=== PATIENT | female | born 1955 | race Caucasian/White ===

== ENCOUNTER 2021-09-05 10:16 | Observation (INO) | payer OTHER, SELFPAY ==
[2021-09-05] VITALS (10 sets, daily range): BP systolic 124–168; BP diastolic 68–92; PULSE 61–83; RESP 14–20; TEMP 36.7–37.2; O2SAT 93–98; BMI 23.5; BMI 20.3
--- NOTE | 2021-09-05 11:13 | EKG12_ITS ---
Test Reason : SEIZURE Blood Pressure : / mmHG Vent. Rate : 076 BPM Atrial Rate : 076 BPM P-R Int : 120 ms QRS Dur : 088 ms QT Int : 418 ms P-R-T Axes : 054 081 078 degrees QTc Int : 470 ms Sinus rhythm with Premature atrial complexes Otherwise normal ECG Confirmed by TALA PRUITT, KAROLINE ([id number]), index editor MANUEL BOLES ([id number]) on 09/10/2021 9:53:34 AM Referred By: Jamie LIU Confirmed By:KAROLINE EDGAR MD
--- NOTE | 2021-09-05 11:13 | RAD_ITS ---
STUDY: X-RAY CHEST REASON FOR EXAM: Female, 65 years old. Cough TECHNIQUE: Single AP portable view of the chest. COMPARISON: 08/07/2012. FINDINGS: The lungs are clear and expanded. There is no demonstrated pleural abnormality. Normal size heart. Normal mediastinum and kelli. Normal visualized pulmonary arteries. There is atherosclerotic tortuosity of the aortic arch and descending thoracic aorta. Normal visualized thoracic spine. Normal visualized ribs, clavicles, and shoulders. There is no demonstrated abnormality of the visualized soft tissue structures of the upper abdomen. RAD/Chest 1 View (Portable) IMPRESSION: No active pulmonary disease. Electronically Signed: Rom Azar, at 12:21 EST Tel , Service support ,
--- NOTE | 2021-09-05 11:13 | CT_ITS ---
STUDY: CT BRAIN WITHOUT CONTRAST REASON FOR EXAM: Female, 65 years old. Syncope. RADIATION DOSAGE (If Supplied By Facility): CTDIvol = ( 44.99 ) mGy, DLP = ( 745.49 ) mGycm TECHNIQUE: Transaxial CT imaging of the brain was performed without administration of intravenous contrast material. Individualized dose optimization techniques were used for this CT. COMPARISON: No relevant priors. FINDINGS: Normal soft tissue structures. Normal calvarium. Normal size ventricles and extra-axial spaces for the patient''s age. There are areas of decreased attenuation within the white matter tracts of the supratentorial brain, consistent with microvascular disease changes. Possible small old lacunar infarct in the periventricular regions. Normal brainstem. Normal cerebellum. There is no intracranial hemorrhage. There are no findings of an acute ischemic infarction. Normal visualized paranasal sinuses. CT/Brain/Head without Contrast IMPRESSION: No acute intracranial process. Electronically Signed: Rom Azar, at 12:19 EST Tel , Service support ,
--- NOTE | 2021-09-05 11:14 | EX.ED.VIS.UR ---
HPI HPI - URI History of Present Illness Chief Complaint: Seizure Narrative Narrative: 65-year-old female presenting with symptoms of cough, chills, generalized fatigue. She states this started at the end of July and then she recovered. After that she started to have a cough and feeling rundown again. She tested negative for Covid in July. She was going to urgent care to be tested for Covid and had seen the physician she was going to be prescribed Keflex for her cough due to her multiple allergies and started to feel lightheaded and the next thing she knows she woke up on a cough. It was reported to her that she had a seizure. She has no history of seizure. She has a mild headache currently. Describes no visual complaints, nausea, lightheadedness. She is not having chest pain or shortness of breath. ROS ROS ED Constitutional Constitutional ED: Reports chills and subjective Eyes Eyes: Denies blurry vision or diplopia ENT ENT ED: Denies rhinorrhea or sore throat Cardiovascular Cardiovascular: Denies chest pain or palpitations Respiratory/Chest Respiratory/Chest: Reports cough and dyspnea Gastrointestinal Gastrointestinal: Denies abdominal pain, nausea or vomiting Genitourinary Genitourinary ED: Denies dysuria or hematuria Musculoskeletal Musculoskeletal: Reports myalgias; Denies arthralgias or neck pain Integumentary Denies Abrasions or rash Neurologic Neurologic: Reports headache(s); Denies paresthesias or weakness PFSH [facility], [facility] Medical History HTN (hypertension) Hypothyroid Home Medications Valacyclovir Hcl [Valtrex] 2,000 mg PO BID PRN PRN 11/27/13 [History Last Taken Unknown] albuterol sulfate [Ventolin HFA] 2 puff INHALATION Q4H PRN PRN 11/27/13 [History Last Taken Unknown] atenolol 50 mg PO DAILY 11/27/13 [History Last Taken 07/30/15 50] epinephrine 0.3 mg IM X1 11/27/13 [History Last Taken Unknown] ginkgo biloba 120 mg PO DAILY 11/27/13 [History Last Taken 07/30/15] levothyroxine 112 mcg PO DAILY 11/27/13 [History Last Taken 07/30/15 112 mcg] multivitamin with iron 1 ea PO DAILY 11/27/13 [History Last Taken 07/17/15] lisinopril 10 mg PO DAILY #30 tablet 08/02/15 [Rx Last Taken Unknown] Allergy/AdvReac Type Severity Reaction Status Date / Time egg Allergy Hives Verified 09/05/21 10:23 ertapenem Allergy Hives Verified 09/05/21 10:23 hydrocodone bitartrate Allergy Unknown Verified 09/05/21 10:23 [From Vicodin] levofloxacin [From Levaquin] Allergy Hives Verified 09/05/21 10:23 oxycodone Allergy Itching Verified 09/05/21 10:23 Penicillins Allergy Unknown Verified 09/05/21 10:23 Sulfa (Sulfonamide Allergy Hives Verified 09/05/21 10:23 Antibiotics) sulfamethoxazole Allergy Hives Verified 09/05/21 10:23 [From Bactrim] trimethoprim [From Bactrim] Allergy Hives Verified 09/05/21 10:23 venom-honey bee Allergy Swelling Verified 09/05/21 10:23 [bee venom (honey bee)] Social History Smoking Status: Former smoker EXAM Physical Exam Const Vital Signs: 09/05/21 10:17 09/05/21 12:29 Temperature 98.5 F Temperature Source Oral Pulse Rate 61 75 Respiratory Rate 18 20 H Blood Pressure 137/78 H 168/81 H Blood Pressure Mean 97 110 Pulse Ox 98 93 Oxygen Delivery Method Room Air Room Air Positive well nourished General Appearance ED: NAD; Negative for pallor HEENT Reports moist mucous membranes normocephalic and atraumatic Eyes PERRL and EOMs intact bilaterally Neck no lymphadenopathy, supple and no meningeal signs Resp normal respiratory effort and clear to auscultation bilaterally Cardio Rate: regular rate Rhythm: regular rhythm GI non-tender and non-distended Palpation: soft Extremity normal to inspection; Negative for full ROM General Extremety ED: Negative for cyanosis General Extremity: Negative for cyanosis Neuro oriented x3 and CN's II-XII intact bilaterally Sensorium / Orientation: alert Motor Exam: strength 5/5 throughout Psych mental status grossly normal Skin General Skin Exam: Negative for jaundice or pallor MDM MDM MDM Narrative Medical decision making narrative: Patient presenting with what she was told was seizure-like activity while she was at the urgent care facility. She is had some cold-like symptoms but also states he had these previously. Patient states he did lose consciousness. She has a mild headache. I obtained blood work and imaging in order to evaluate her. EKG on my interpretation shows a normal sinus rhythm with ventricular rate of 76 bpm with PACs. Chest x-ray on my interpretation is no acute cardiopulmonary process and the radiologist does agree. CT of the brain is negative for acute findings. CBC shows no leukocytosis, lymphopenia, leukopenia. Platelets are normal. Renal function is normal. Patient sodium is noted to be 121 and her potassium is 3.2. AST and ALT is slightly elevated. Urinalysis is negative for infection. Patient's lactic acid is zero. Given the patient's constellation of symptoms I do believe it is most likely that she had a syncopal episode secondary to hyponatremia. Based on her lactic acid I do not believe she had a seizure. She is alert and awake in no acute distress currently. She was given a liter of normal saline. I do believe that she warrants observation given her syncope and hyponatremia. This is discussed with the hospitalist who admitted the patient in stable condition. Impression: 1. Hyponatremia 2. Syncope 3. Reported seizure-like activity Lab Data Attestation: I reviewed the patient's lab results. Labs: Laboratory Results - last 24 hr 09/05/21 09/05/21 09/05/21 10:33 10:33 11:23 WBC 6.3 RBC 4.79 Hgb 14.3 Hct 40.5 MCV 84.6 MCH 29.9 MCHC 35.3 RDW Std Deviation 34.1 L RDW Coeff of [place] 11.0 L Plt Count 227 MPV 10.0 Immature Gran % (Auto) 0.800 Neut % (Auto) 62.1 Lymph % (Auto) 24.0 [place] % (Auto) 12.1 H Eos % (Auto) 0.5 Baso % (Auto) 0.5 Absolute Neuts (auto) 3.9 Absolute Lymphs (auto) 1.51 Nucleated RBC % 0 Sodium 121 L Potassium 3.2 L Chloride 83 L Carbon Dioxide 27.0 Anion Gap 11 BUN 14 Creatinine 0.97 Estim Creat Clear Calc 48.47 Est GFR (MDRD) Af Amer 74 Est GFR (MDRD) Non-Af 61 BUN/Creatinine Ratio 14.4 Glucose 105 Lactic Acid Calcium 9.0 Total Bilirubin 0.50 AST 63 H ALT 58 H Alkaline Phosphatase 101 Troponin I High Sens 5 Total Protein 8.6 H Albumin 4.1 Globulin 4.5 H Albumin/Globulin Ratio 0.9 Urine Color Yellow Urine Clarity Clear Urine pH 7.0 Ur Specific [place] 1.005 Urine Protein Negative Urine Glucose (UA) Normal Urine Ketones Negative Urine Occult Blood Negative Urine Nitrite Negative Urine Bilirubin Negative Urine Urobilinogen Normal Ur Leukocyte Esterase Negative Urine RBC 0 SEEN Urine WBC 0 SEEN Ur Squamous Epith Cells 0-5 SEEN Urine Bacteria 0 SEEN Urine Mucus 0 SEEN 09/05/21 12:05 WBC RBC Hgb Hct MCV MCH MCHC RDW Std Deviation RDW Coeff of [place] Plt Count MPV Immature Gran % (Auto) Neut % (Auto) Lymph % (Auto) [place] % (Auto) Eos % (Auto) Baso % (Auto) Absolute Neuts (auto) Absolute Lymphs (auto) Nucleated RBC % Sodium Potassium Chloride Carbon Dioxide Anion Gap BUN Creatinine Estim Creat Clear Calc Est GFR (MDRD) Af Amer Est GFR (MDRD) Non-Af BUN/Creatinine Ratio Glucose Lactic Acid 1.0 Calcium Total Bilirubin AST ALT Alkaline Phosphatase Troponin I High Sens Total Protein Albumin Globulin Albumin/Globulin Ratio Urine Color Urine Clarity Urine pH Ur Specific [place] Urine Protein Urine Glucose (UA) Urine Ketones Urine Occult Blood Urine Nitrite Urine Bilirubin Urine Urobilinogen Ur Leukocyte Esterase Urine RBC Urine WBC Ur Squamous Epith Cells Urine Bacteria Urine Mucus Radiography Diagnostic Testing: Clinical Impression(s) from Imaging Studies Brain CT 09/05/21 11:13 IMPRESSION: No acute intracranial process. Electronically Signed: Rom Azar, at 12:19 EST Tel , Service support , Chest X-Ray 09/05/21 11:13 IMPRESSION: No active pulmonary disease. Electronically Signed: Rom Azar, at 12:21 EST Tel , Service support , Discharge Plan Disposition Disposition: Acute Care Hospital [facility] Discharge Date/Time: 09/05/21 14:39
[2021-09-05] MEDS: 0.9% Normal Saline 1,000 ML 1000 ML IV (11:21)
[2021-09-05 11:26] LABS: Absolute Lymphocyte Count 1.51 X10^3/uL (0.83-4.51); Absolute Neutrophil Count 3.9 X10^3/uL (2.0-7.7); Basophil# 0.03 X10^3/uL; Basophil% 0.5 % (0-1); Eosinophil# 0.03 X10^3/uL; Eosinophils% 0.5 % (0-5); Hematocrit 40.5 % (37-47); Hemoglobin 14.3 g/dL (12.0-15.0); Lymphocyte # 1.51 X10^3/ul (0.83-4.51); Mean Corp Hgb Conc 35.3 g/dL (32-36); Mean Corpuscular Hgb 29.9 pg (27.0-32.0); Mean Corpuscular Volume 84.6 fL (81-99); Monocyte# 0.76 X10^3/uL; Monocyte% 12.1 % (0-10); NRBC Flagged by Analyzer 0 % (0-5); Neutrophil # 3.92 X10^3/uL (2.7-7.7); Neutrophil % 62.1 % (47-70); Platelet Count 227 K/mm3 (150-450); RBC Distribution Width SD 34.1 fl (35.1-43.9); Red Blood Count 4.79 M/mm3 (4.2-5.4); White Blood Count 6.3 K/mm3 (4.4-11.0)
[2021-09-05 11:29] LABS: Bacteria 0 SEEN /hpf (None Seen); Mucous, Urine 0 SEEN /hpf (<or=2+); Red Blood Cells-Urine 0 SEEN /hpf (0-5); White Blood Cells 0 SEEN /hpf (0-5)
[2021-09-05 11:34] LABS: Color, Urine Yellow (Yellow); Glucose, Dipstick Normal (Normal); Ketone-Dipstick Negative (Negative); Leukocyte Esterase-Dipstick Negative /ul (Negative); Nitrite-Dipstick Negative (Negative); Occult Blood-Urine Negative /ul (Negative); Protein-Dipstick Negative (Negative); Specific Gravity, Urine 1.005 (1.002-1.030); Urine Bilirubin Dipstick Negative (Negative); Urine Clarity Clear (Clear); Urine Urobilinogen Normal (Normal)
[2021-09-05 11:38] LABS: ALB/GLOB Ratio 0.9 RATIO (0.9-2.4); AST(SGOT) 63 U/L (15-37); Alanine Aminotransfer ALT/SGPT 58 U/L (13-56); Albumin, Serum 4.1 g/dL (3.2-5.0); Alkaline Phosphatase 101 U/L (45-117); Anion Gap 11 (5-15); BUN 14 mg/dL (7-18); BUN/Creat Ratio 14.4 RATIO (10-20); Chloride 83 mmol/L (98-107); Creatinine, Serum 0.97 mg/dL (0.55-1.02); EST Glomerular Filtration Rate 61 mL/min (>60); Est Glom Filt Rate - Afr Amer 74 mL/min (>60); Estimated Creatinine Clearance 48.47 ml/min; Globulin 4.5 g/dL (2.2-4.2); Glucose 105 mg/dL (74-106); Potassium 3.2 mmol/L (3.5-5.1); Protein, Total 8.6 g/dL (6.4-8.2); Sodium Level 121 mmol/L (136-145); Troponin-I HS 5 pg/mL (3.0-54.0)
[2021-09-05 11:42] LABS: Squamous Epithelial Cells - UA 0-5 SEEN /hpf (5-10)
[2021-09-05] MEDS: 0.9% Normal Saline 1,000 ML 999 ML IV (12:29)
--- NOTE | 2021-09-05 12:55 | HP.PCM.HOS_ITS ---
HPI - General General Date of Admission: 09/05/21 HPI Narrative JOSIANE ALVARADO, is a 65 F with a PMH as outlined who presents via the ED on 09/05/2021 with a complaint of seizure. She has had cough and cold symptoms; symptoms initially started in July, and says she got better. Her symptoms recurred again a few days ago. She says she went to the urgent care today, but says she felt weak and lightheaded, and the next thing she realised, she was on the ground. She says she was told by the staff there that she had a seizure lasting ~ 1 min. No further information was available about the seizure. She doesnt have a history of seizure. She admits to not eating and drinking well of late because of her cold-like symptoms. Covid test done in the ED was still pending. Vital signs were BP of 168/81, ID of 75, RR of 20 and she was saturating at 93% on room air. CBC was unremarkable. BMP however showed sodium of 121 potassium of 3.2 and chloride of 83. Urinalysis was within normal limits. CT of the brain showed no acute intracranial process. [facility] Medical History HTN (hypertension) Hypothyroid Home Medications Valacyclovir Hcl [Valtrex] 2,000 mg PO BID PRN PRN 11/27/13 [History Last Taken Unknown] albuterol sulfate [Ventolin HFA] 2 puff INHALATION Q4H PRN PRN 11/27/13 [History Last Taken Unknown] atenolol 50 mg PO DAILY 11/27/13 [History Last Taken 07/30/15 50] epinephrine 0.3 mg IM X1 11/27/13 [History Last Taken Unknown] ginkgo biloba 120 mg PO DAILY 11/27/13 [History Last Taken 07/30/15] levothyroxine 112 mcg PO DAILY 11/27/13 [History Last Taken 07/30/15 112 mcg] multivitamin with iron 1 ea PO DAILY 11/27/13 [History Last Taken 07/17/15] lisinopril 10 mg PO DAILY #30 tablet 08/02/15 [Rx Last Taken Unknown] Allergy/AdvReac Type Severity Reaction Status Date / Time egg Allergy Hives Verified 09/05/21 10:23 ertapenem Allergy Hives Verified 09/05/21 10:23 hydrocodone bitartrate Allergy Unknown Verified 09/05/21 10:23 [From Vicodin] levofloxacin [From Levaquin] Allergy Hives Verified 09/05/21 10:23 oxycodone Allergy Itching Verified 09/05/21 10:23 Penicillins Allergy Unknown Verified 09/05/21 10:23 Sulfa (Sulfonamide Allergy Hives Verified 09/05/21 10:23 Antibiotics) sulfamethoxazole Allergy Hives Verified 09/05/21 10:23 [From Bactrim] trimethoprim [From Bactrim] Allergy Hives Verified 09/05/21 10:23 venom-honey bee Allergy Swelling Verified 09/05/21 10:23 [bee venom (honey bee)] Social History Smoking Status: Former smoker ROS Review of Systems ROS Unobtainable: Denies due to encephalopathy Constitutional Constitutional: Reports fatigue, malaise and weakness; Denies anorexia, chills, fever(s) or night sweats Eyes Eyes: Denies change in vision ENT HEENT: Reports nasal congestion and sore throat; Denies abnormal hearing, epistaxis, headache(s) or sinus pressure Cardiovascular Cardiovascular: Reports dyspnea on exertion, lightheadedness, rapid heart rate and syncope; Denies chest pain, edema, orthopnea, palpitations or paroxysmal nocturnal dyspnea Respiratory/Chest Respiratory/Chest: Denies cough, dyspnea, excessive phlegm production, hemoptysis, productive cough, shortness of breath at rest, shortness of breath with exertion or wheezing Gastrointestinal Gastrointestinal: Denies abdominal pain, constipation, diarrhea, nausea or vomiting Genitourinary Genitourinary: Denies burning urination or dysuria Musculoskeletal Musculoskeletal: Denies arthralgias Neurologic Neurologic: Reports disequilibrium, seizure-like activity and syncope; Denies confusion, dizziness, focal weakness, headache(s), numbness, paresthesias, tingling or tremor(s) Psychiatric Psychiatric: Denies anxiety or depression Endocrine Endocrinology: Denies change in body appearance Vital Signs Vital Signs Vital Signs: 09/05/21 10:17 09/05/21 12:29 Temperature 98.5 F Temperature Source Oral Pulse Rate 61 75 Respiratory Rate 18 20 H Blood Pressure 137/78 H 168/81 H Blood Pressure Mean 97 110 Pulse Ox 98 93 Oxygen Delivery Method Room Air Room Air Weight Weight: 132 lb 11.492 oz Body Mass Index (BMI) 23.5 Physical Exam Const alert, oriented x3 and no apparent distress General Appearance: cooperative HEENT normocephalic, head/scalp atraumatic and hearing grossly normal bilaterally HEENT Narrative: dry mucosal membranes Eyes PERRL, EOMs intact bilaterally and conjunctivae normal Neck no lymphadenopathy and supple Resp normal respiratory effort, no retractions and no use of accessory muscles Cardio regular rate, regular rhythm, S1 normal heart sound, S2 normal heart sound and no murmurs GI normal to inspection, nondistended, normoactive bowel sounds, soft to palpation, non-tender and non-distended Extremity normal to inspection, full ROM and no clubbing, cyanosis or edema Peripheral Pulses: Yes pulses 2+ throughout Skin no rashes or lesions noted Neuro oriented x3, CN's II-XII intact bilaterally, moves all extremities and no focal motor deficits Sensorium / Orientation: awake and alert Psych affect normal Results Lab / Micro Data Result Diagrams: 09/06/21 05:40 09/06/21 05:40 Labs: Laboratory Results - last 24 hr 09/05/21 10:33: WBC 6.3, RBC 4.79, Hgb 14.3, Hct 40.5, MCV 84.6, MCH 29.9, MCHC 35.3, RDW Std Deviation 34.1 L, RDW Coeff of [place] 11.0 L, Plt Count 227, MPV 10.0, Immature Gran % (Auto) 0.800, Neut % (Auto) 62.1, Lymph % (Auto) 24.0, [place] % (Auto) 12.1 H, Eos % (Auto) 0.5, Baso % (Auto) 0.5, Absolute Neuts (auto) 3.9, Absolute Lymphs (auto) 1.51, Nucleated RBC % 0 09/05/21 10:33: Sodium 121 L, Potassium 3.2 L, Chloride 83 L, Carbon Dioxide 27.0, Anion Gap 11, BUN 14, Creatinine 0.97, Estim Creat Clear Calc 48.47, Est GFR (MDRD) Af Amer 74, Est GFR (MDRD) Non-Af 61, BUN/Creatinine Ratio 14.4, Glucose 105, Calcium 9.0, Total Bilirubin 0.50, AST 63 H, ALT 58 H, Alkaline Phosphatase 101, Troponin I High Sens 5, Total Protein 8.6 H, Albumin 4.1, Globulin 4.5 H, Albumin/Globulin Ratio 0.9 09/05/21 11:23: Urine Color Yellow, Urine Clarity Clear, Urine pH 7.0, Ur Specific [place] 1.005, Urine Protein Negative, Urine Glucose (UA) Normal, Urine Ketones Negative, Urine Occult Blood Negative, Urine Nitrite Negative, Urine Bilirubin Negative, Urine Urobilinogen Normal, Ur Leukocyte Esterase Negative, Urine RBC 0 SEEN, Urine WBC 0 SEEN, Ur Squamous Epith Cells 0-5 SEEN, Urine Bacteria 0 SEEN, Urine Mucus 0 SEEN 09/05/21 12:05: Lactic Acid 1.[address] 09/05/21 11:13 IMPRESSION: No acute intracranial process. Electronically Signed: Rom Azar, at 12:19 EST Tel , Service support , Chest X-Ray 09/05/21 11:13 IMPRESSION: No active pulmonary disease. Electronically Signed: Rom Azar, at 12:21 EST Tel , Service support , Assessment & Plan Assessment/Plan (1) Hyponatremia: (2) Observed seizure-like activity: PLAN: #Syncope vs seizure * Patient's complaint of prodromal symptoms of lightheadedness and dizziness prior to her seizure-like activity makes me think that this was most likely due to syncope. I think the syncope may also have been due to dehydration and hyponatremia as patient had not been eating or drinking well. * Admit to PCU. Check orthostatics. * Hydrate gently with IV fluids to correct sodium between 6 to 8 mmol/L over the next 24 hours. * Fall precautions. We will get an EEG as a precaution * #Acute hyponatremia: * Sodium is 121. I think it is likely hypotonic hyponatremia and she has not been eating and drinking well. * Will check serum osmolarity and urine osmolality and check urine sodium. * Hydrate with IV fluids for target correction of 6 to 8 mmol/L over 24 hours. * #Upper respiratory tract infection * Etiology is not very clear. He states she has had congestion and cold-like symptoms since July 2021. Covid test done is negative. * Unable to do respiratory panel as test is currently not available. * Symptomatic management with Tylenol and cough syrup as needed. Breathing treatments bronchodilators. * #Hypothyroidism: On Synthroid #Hypertension: On lisinopril and atenolol DVT prophylaxis: lovenox Charges/Coding Visit Charges OBSV E&M: 17386 Initial observation care L3
--- NOTE | 2021-09-05 13:41 | NURSING ---
PCU KORAM HYPONATREMIA, SYNCOPE
[2021-09-05] MEDS: 0.9% Saline Lock 10 ML Syringe IV (16:17)
[2021-09-05] MEDS: 0.9% Normal Saline 1,000 ML 150 ML IV ×2 (16:17→22:43)
[2021-09-05 17:23] LABS: Anion Gap 8 (5-15); BUN 10 mg/dL (7-18); BUN/Creat Ratio 13.5 RATIO (10-20); Calcium,Total 8.2 mg/dL (8.5-10.1); Chloride 95 mmol/L (98-107); Creatinine, Serum 0.74 mg/dL (0.55-1.02); EST Glomerular Filtration Rate 84 mL/min (>60); Est Glom Filt Rate - Afr Amer 102 mL/min (>60); Estimated Creatinine Clearance 67.17 ml/min; Glucose 89 mg/dL (74-106); Potassium 3.5 mmol/L (3.5-5.1); Sodium Level 129 mmol/L (136-145)
[2021-09-05 17:44] LABS: Osmolality, Serum 269 mOsm/KG (280-301)
[2021-09-05] MEDS: Potassium Chloride Oral Tablet 20 MEQ 40 MEQ PO (18:55)
[2021-09-05 19:28] LABS: Urine Sodium 51 mmol/L (Not Establ.)
[2021-09-05 19:45] LABS: Anion Gap 7 (5-15); BUN 8 mg/dL (7-18); BUN/Creat Ratio 10.2 RATIO (10-20); Calcium,Total 8.3 mg/dL (8.5-10.1); Chloride 99 mmol/L (98-107); Creatinine, Serum 0.78 mg/dL (0.55-1.02); EST Glomerular Filtration Rate 78 mL/min (>60); Est Glom Filt Rate - Afr Amer 95 mL/min (>60); Estimated Creatinine Clearance 63.73 ml/min; Glucose 84 mg/dL (74-106); Potassium 3.3 mmol/L (3.5-5.1); Sodium Level 132 mmol/L (136-145)
[2021-09-05 20:03] LABS: Osmolality, Urine 160 mOsm/KG
[2021-09-05] MEDS: guaiFENesin 10 ML UDC (200MG/10ML) PO (20:39)
--- NOTE | 2021-09-05 22:25 | PCS.PANDOC ---
PANDEMIC DOCUMENTATION INITIATED: Date: 04/21/2021 Time: 190
[2021-09-06] VITALS (8 sets, daily range): BP systolic 145–181; BP diastolic 75–87; PULSE 59–82; RESP 16; TEMP 36.6–37; O2SAT 95–96
[2021-09-06] MEDS: guaiFENesin 10 ML UDC (200MG/10ML) PO ×2 (00:26→05:31)
[2021-09-06 00:46] LABS: Anion Gap 6 (5-15); BUN 10 mg/dL (7-18); Calcium,Total 8.2 mg/dL (8.5-10.1); Chloride 102 mmol/L (98-107); Creatinine, Serum 0.71 mg/dL (0.55-1.02); EST Glomerular Filtration Rate 87 mL/min (>60); Est Glom Filt Rate - Afr Amer 106 mL/min (>60); Estimated Creatinine Clearance 70.01 ml/min; Glucose 96 mg/dL (74-106); Sodium Level 132 mmol/L (136-145)
[2021-09-06] MEDS: 0.9% Normal Saline 1,000 ML 150 ML IV (05:25)
[2021-09-06] MEDS: Levothyroxine 112 MCG Tablet PO (05:31)
[2021-09-06 06:25] LABS: Absolute Lymphocyte Count 1.39 X10^3/uL (0.83-4.51); Absolute Neutrophil Count 2.1 X10^3/uL (2.0-7.7); Basophil# 0.03 X10^3/uL; Basophil% 0.7 % (0-1); Eosinophil# 0.04 X10^3/uL; Eosinophils% 0.9 % (0-5); Hematocrit 38.4 % (37-47); Hemoglobin 13.1 g/dL (12.0-15.0); Lymphocyte # 1.39 X10^3/ul (0.83-4.51); Lymphocyte % 32.2 % (19-41); Mean Corp Hgb Conc 34.1 g/dL (32-36); Mean Corpuscular Hgb 29.3 pg (27.0-32.0); Mean Corpuscular Volume 85.9 fL (81-99); Mean Platelet Vol. 9.6 fl (6.2-12.0); Monocyte# 0.72 X10^3/uL; Monocyte% 16.7 % (0-10); NRBC Flagged by Analyzer 0 % (0-5); Neutrophil # 2.11 X10^3/uL (2.7-7.7); Neutrophil % 48.8 % (47-70); Platelet Count 203 K/mm3 (150-450); RBC Distribution Width CV 11.5 % (11.6-14.6); RBC Distribution Width SD 36.2 fl (35.1-43.9); Red Blood Count 4.47 M/mm3 (4.2-5.4); White Blood Count 4.3 K/mm3 (4.4-11.0)
[2021-09-06 06:55] LABS: Anion Gap 6 (5-15); BUN 7 mg/dL (7-18); BUN/Creat Ratio 10.1 RATIO (10-20); Calcium,Total 8.2 mg/dL (8.5-10.1); Chloride 107 mmol/L (98-107); Creatinine, Serum 0.69 mg/dL (0.55-1.02); EST Glomerular Filtration Rate 91 mL/min (>60); Est Glom Filt Rate - Afr Amer 110 mL/min (>60); Estimated Creatinine Clearance 72.04 ml/min; Glucose 108 mg/dL (74-106); Sodium Level 135 mmol/L (136-145)
[2021-09-06] MEDS: Enoxaparin 40 MG/0.4 ML Syringe SC (08:10)
[2021-09-06] MEDS: Atenolol 50 MG Tablet PO (08:11)
[2021-09-06] MEDS: Loratadine 10 MG Tablet PO (08:11)
[2021-09-06] MEDS: Lisinopril 10 MG Tablet PO (08:11)
[2021-09-06] MEDS: Multivitamins,Ther W-Minerals Tablet 1 TABLET PO (08:11)
--- NOTE | 2021-09-06 10:52 | TELEMED_ITS ---
[facility] has confirmed receipt of a request for visit. This document confirms receipt of the order initiating the consult. To find the results of the consultation, please view the patient's reports for the scanned Telemed Consult.
--- NOTE | 2021-09-06 14:07 | PCM.DC.SUM ---
Providers Date of Admission: 09/05/21 Primary Care Physician: Dr. Adeola Azevedo MD Reason For Visit: HYPONATREMIA, SEIZURE LIKE ACTIVITY Diagnosis Discharge Diagnosis (1) Hyponatremia: Status: Acute Code(s): E87.1 - Hypo-osmolality and hyponatremia (2) Observed seizure-like activity: Status: Acute Code(s): R56.9 - Unspecified convulsions Medications at Discharge Home Medications Valacyclovir Hcl [Valtrex] 2,000 mg PO BID PRN PRN 11/27/13 albuterol sulfate [Ventolin HFA] 2 puff INHALATION Q4H PRN PRN 11/27/13 atenolol 50 mg PO DAILY 11/27/13 epinephrine 0.3 mg IM X1 11/27/13 ginkgo biloba 120 mg PO DAILY 11/27/13 levothyroxine 112 mcg PO DAILY 11/27/13 multivitamin with iron 1 ea PO DAILY 11/27/13 lisinopril 10 mg PO DAILY #30 tablet 08/02/15 Hospital Course Operations None Procedures Electroencephalogram Summary of Care Provided Minutes Spent on Discharge: 40 Hospital Course: JOSIANE ALVARADO, is a 65 F with a PMH as outlined who presents via the ED on 09/05/2021 with a complaint of seizure like activity. She has had cough and cold symptoms; symptoms initially started in July, and says she got better. Her symptoms recurred again a few days ago. She says she went to the urgent care today, but says she felt weak and lightheaded, and the next thing she realised, she was on the ground. She says she was told by the staff there that she had a seizure lasting ~ 1 min. No further information was available about the seizure. She doesnt have a history of seizure. She admits to not eating and drinking well of late because of her cold-like symptoms. Covid test done in the ED was still pending. Vital signs were BP of 168/81, MI of 75, RR of 20 and she was saturating at 93% on room air. CBC was unremarkable. BMP however showed sodium of 121 potassium of 3.2 and chloride of 83. Urinalysis was within normal limits. CT of the brain showed no acute intracranial process. She was admitted and managed for syncope which was thought to be due to dehydration and hyponatremia, and less likely a seizure. She was hydrated with normal saline and hyponatremia corrected, with sodium going up to 135. I discussed with nephrology about risk of over correction, and per discussion with Dr Garrett, nephrology, the risk of osmotic demyelination was increased if the pateint had sodium of less than 105, was malnourished or had liver disease. Since patient didnt have any of these risk factors, there was little risk of osmotic demyelination syndrome in light of her mild overcorrection of sodium from 121 to 135. Patient had an EEG which was normal. Orthostatics were negative; patient however felt much better after she was hydrated with fluids. She remained stable and was discharged home on 09/06/2021 of note patient improved much faster than expected. She is to follow up with her PCP in 1-2 weeks. Physical Exam Const alert, oriented x3 and no apparent distress General Appearance: cooperative, comfortable and well kempt Exam Limitations: no limitations HEENT normocephalic, head/scalp atraumatic and hearing grossly normal bilaterally Eyes PERRL, EOMs intact bilaterally and conjunctivae normal Neck no lymphadenopathy and supple Resp normal respiratory effort, no retractions and no use of accessory muscles Cardio regular rate, regular rhythm, S1 normal heart sound, S2 normal heart sound and no murmurs GI normal to inspection, nondistended, normoactive bowel sounds, soft to palpation, non-tender and non-distended Extremity normal to inspection, full ROM and no clubbing, cyanosis or edema Skin no rashes or lesions noted Neuro oriented x3, CN's II-XII intact bilaterally, moves all extremities and no focal motor deficits Sensorium / Orientation: awake and alert Psych affect normal Weight / BMI Weight Weight: 122 lb 2.177 oz Body Mass Index (BMI) 20.3 ABG / Lab / Microbiology Data Result Diagrams: 09/06/21 05:40 09/06/21 05:40 Laboratory: Laboratory Results - last 24 hr 09/05/21 16:18: Serum Osmolality 269 L 09/05/21 16:18: Sodium 129 L, Potassium 3.5, Chloride 95 L, Carbon Dioxide 26.0, Anion Gap 8, BUN 10, Creatinine 0.74, Estim Creat Clear Calc 67.17, Est GFR (MDRD) Af Amer 102, Est GFR (MDRD) Non-Af 84, BUN/Creatinine Ratio 13.5, Glucose 89, Calcium 8.2 L 09/05/21 19:00: Urine Osmolality 160, Ur Random Sodium 51 09/05/21 19:17: Sodium 132 L, Potassium 3.3 L, Chloride 99, Carbon Dioxide 26.0, Anion Gap 7, BUN 8, Creatinine 0.78, Estim Creat Clear Calc 63.73, Est GFR (MDRD) Af Amer 95, Est GFR (MDRD) Non-Af 78, BUN/Creatinine Ratio 10.2, Glucose 84, Calcium 8.3 L 09/05/21 23:00: Sodium 132 L, Potassium 4.0, Chloride 102, Carbon Dioxide 24.0, Anion Gap 6, BUN 10, Creatinine 0.71, Estim Creat Clear Calc 70.01, Est GFR (MDRD) Af Amer 106, Est GFR (MDRD) Non-Af 87, BUN/Creatinine Ratio 14.0, Glucose 96, Calcium 8.2 L 09/06/21 05:40: WBC 4.3 L, RBC 4.47, Hgb 13.1, Hct 38.4, MCV 85.9, MCH 29.3, MCHC 34.1, RDW Std Deviation 36.2, RDW Coeff of [place]sten 11.5 L, Plt Count 203, MPV 9.6, Immature Gran % (Auto) 0.700, Neut % (Auto) 48.8, Lymph % (Auto) 32.2, [place] % (Auto) 16.7 H, Eos % (Auto) 0.9, Baso % (Auto) 0.7, Absolute Neuts (auto) 2.1, Absolute Lymphs (auto) 1.39, Nucleated RBC % 0 09/06/21 05:40: Sodium 135 L, Potassium 4.0, Chloride 107, Carbon Dioxide 22.0, Anion Gap 6, BUN 7, Creatinine 0.69, Estim Creat Clear Calc 72.04, Est GFR (MDRD) Af Amer 110, Est GFR (MDRD) Non-Af 91, BUN/Creatinine Ratio 10.1, Glucose 108 H, Calcium 8.2 L Microbiology: Microbiology 09/05/21 10:48 Nasal Secretion SARS-CoV-2 Antigen (Rapid) - Final D/C Instructions Discharge Diet: Low fat / Low cholesterol Discharge Activity: Return to Normal Activity Weight Bearing Status: Weight bearing as tolerated Call your doctor if you observe: Fever of 101 or Higher, Shortness of breath, Swelling in the ankles and Increased palpitations (irregular heartbeat) Meaningful Use Info Meaningful Use Diagnoses (Choose all that apply): None applicable Discharge Plan Admission Admit Date/Time: 09/05/21 13:16 Primary Reason for Your Visit: syncope due to dehydration, hyponatremia Attending Provider: Collette Durbin Primary Care Provider: Adeola Azevedo Instructions Patient Instructions: Dehydration, Hyponatremia Dc Additional Instructions / Restrictions: encouraged to keep well hydrated orally by drinking ~ 8 glasses of water daily. Discharge Orders/Prescriptions Prescriptions: Continued ginkgo biloba 40 MG capsule 120 mg PO DAILY RF: 0 epinephrine 0.3 MG syringe 0.3 mg IM X1 RF: 0 albuterol sulfate [Ventolin HFA] 1 INHALER inhaler 2 puff inhalation Q4H PRN PRN (Reason: Bronchospasm) RF: 0 atenolol 50 MG tablet 50 mg PO DAILY RF: 0 levothyroxine 112 MCG tablet 112 mcg PO DAILY RF: 0 multivitamin with iron 1 EACH tablet 1 ea PO DAILY RF: 0 Valacyclovir Hcl [Valtrex] 1,000 MG tablet 2,000 mg PO BID PRN PRN (Reason: Pain) RF: 0 lisinopril 10 MG tablet 10 mg PO DAILY Qty: 30 RF: 0 Referrals / Follow Up: Adeola Azevedo MD [Primary Care Provider] - Within 2 Weeks Disposition Disposition (needs filled in before D/C Order can be placed): Home, Self Care Charges/Coding Visit Charges OBSV E&M: 31787 Observation care discharge
== END 2021-09-06 17:30 | disposition home or self-care (01) ==
LOC: ED 12:08 → PCU 09-06 14:16
PROVIDERS: Admitting Provider Student in an Organized Health Care Education/Training Program; Emergency Provider Student in an Organized Health Care Education/Training Program; PCP Internal Medicine; Visit Provider Student in an Organized Health Care Education/Training Program
DX: R56.9 Unspecified convulsions (principal); I10 Essential (primary) hypertension; E87.1 Hypo-osmolality and hyponatremia; R55 Syncope and collapse; Z87.891 Personal history of nicotine dependence; E03.9 Hypothyroidism, unspecified; Z79.899 Other long term (current) drug therapy; Z79.890 Hormone replacement therapy; I49.1 Atrial premature depolarization; J06.9 Acute upper respiratory infection, unspecified
CPT/HCPCS: 36415; 70450; 71045; 80048; 80053; 81001; 83605; 83930; 83935; 84300; 84484; 85025; 87426; 93005; 95819; 96360; 96361; 96372; 99218; 99251; 99284; J7030; A4216; G0378; G0463

== ENCOUNTER 2021-09-08 09:50 | Emergency (ER) | payer OTHER, SELFPAY ==
[2021-09-08 09:51] VITALS: BP 178/82; PULSE 73; RESP 14; TEMP 36.7; O2SAT 97; BMI 20.9
[2021-09-08 10:00] VITALS: BP 161/90
--- NOTE | 2021-09-08 10:16 | CT_ITS ---
STUDY: CT BRAIN WITHOUT CONTRAST REASON FOR EXAM: Female, 65 years old. Headache, htn RADIATION DOSAGE (If Supplied By Facility): CTDIvol = ( 44.99 ) mGy, DLP = ( 745.49 ) mGycm TECHNIQUE: Transaxial CT imaging of the brain was performed without administration of intravenous contrast material. Individualized dose optimization techniques were used for this CT. COMPARISON: Comparison is made with prior examination dated 09/05/2021. FINDINGS: Normal soft tissue structures. Normal calvarium. There is mild cerebral atrophy with widening of the extra-axial spaces and ventricular dilatation. Normal white matter tracts of the cerebral hemispheres. There are small punctate calcifications of the basal ganglia which are seen in the aging brain as a normal variant. Normal brainstem. Normal cerebellum. There is no intracranial hemorrhage. There are no findings of an acute ischemic infarction. Atherosclerotic plaque formation of the vertebral arteries and cavernous portions of the internal carotid arteries bilaterally. Normal visualized paranasal sinuses. CT/Brain/Head without Contrast IMPRESSION: Chronic involutional changes of the brain. Electronically Signed: Josue Farmer MD at 11:02 EST , Service support ,
--- NOTE | 2021-09-08 10:39 | EDS_ITS ---
HPI History of Present Illness Chief Complaint: Hypertension Informant: patient Onset/Context/Timing Onset: Days (2-3) Context: Gradual Onset Timing: Waxes and wanes Quality: Ache Location: Mid frontal and mid occipital Current Severity: Mild Maximum Severity: Moderate Associated Symptoms Associated Symptoms: Blurred vision at times without diplopia or visual field loss Narrative Narrative: Patient has been having headache and vision blurriness for the past 2 or 3 days, prompting her to check her blood pressure which has been in the 180/100 range. Compliant with her usual medications for blood pressure, lisinopril 10 mg daily and atenolol 50 mg daily without any recent changes. States she was recently admitted to the hospital after having had a seizure and a negative EEG and was subsequently discharged to follow-up which she has not been able to do yet. Called her doctor this morning and referred to the emergency department. She denies any lapses in consciousness since she has been home, vomiting, confusion, diplopia, focal peripheral neurologic symptoms. [facility] Medical History HTN (hypertension) Hypothyroid Home Medications Valacyclovir Hcl [Valtrex] 2,000 mg PO BID PRN PRN 11/27/13 [History Last Taken Unknown] albuterol sulfate [Ventolin HFA] 2 puff INHALATION Q4H PRN PRN 11/27/13 [History Last Taken Unknown] atenolol 50 mg PO DAILY 11/27/13 [History Last Taken 07/30/15 50] epinephrine 0.3 mg IM X1 11/27/13 [History Last Taken Unknown] ginkgo biloba 120 mg PO DAILY 11/27/13 [History Last Taken 07/30/15] levothyroxine 112 mcg PO DAILY 11/27/13 [History Last Taken 07/30/15 112 mcg] multivitamin with iron 1 ea PO DAILY 11/27/13 [History Last Taken 07/17/15] lisinopril 20 mg PO DAILY #30 tablet 09/08/21 [Rx Last Taken Unknown] Allergy/AdvReac Type Severity Reaction Status Date / Time egg Allergy Hives Verified 09/08/21 09:54 ertapenem Allergy Hives Verified 09/08/21 09:54 hydrocodone bitartrate Allergy Unknown Verified 09/08/21 09:54 [From Vicodin] levofloxacin [From Levaquin] Allergy Hives Verified 09/08/21 09:54 oxycodone Allergy Itching Verified 09/08/21 09:54 Penicillins Allergy Unknown Verified 09/08/21 09:54 Sulfa (Sulfonamide Allergy Hives Verified 09/08/21 09:54 Antibiotics) sulfamethoxazole Allergy Hives Verified 09/08/21 09:54 [From Bactrim] trimethoprim [From Bactrim] Allergy Hives Verified 09/08/21 09:54 venom-honey bee Allergy Swelling Verified 09/08/21 09:54 [bee venom (honey bee)] Social History Smoking Status: Former smoker ROS ROS ED Constitutional Constitutional ED: Denies chills or fever(s) Eyes Eyes: Reports blurry vision and change in vision; Denies diplopia ENT ENT ED: Denies rhinorrhea or sore throat Cardiovascular Cardiovascular: Denies chest pain or palpitations Respiratory/Chest Respiratory/Chest: Denies cough or dyspnea Gastrointestinal Gastrointestinal: Denies abdominal pain, diarrhea, nausea or vomiting Genitourinary Genitourinary ED: Denies dysuria or hematuria Musculoskeletal Musculoskeletal: Denies back pain or neck pain Integumentary Denies abscess or rash Neurologic Neurologic: Reports headache(s); Denies paresthesias or weakness Psychiatric Psychiatric: Denies anxiety or suicidal thoughts EXAM Physical Exam Const Vital Signs: 09/08/21 09:51 09/08/21 10:00 09/08/21 10:48 Temperature 98.0 F Temperature Source Temporal Pulse Rate 73 Respiratory Rate 14 Respiratory Effort Normal Blood Pressure 178/82 H 161/90 H 163/92 H Blood Pressure Mean 114 113 115 Pulse Ox 97 Oxygen Delivery Method Room Air 09/08/21 11:15 Temperature Temperature Source Pulse Rate 84 Respiratory Rate 16 Respiratory Effort Blood Pressure 151/73 H Blood Pressure Mean 99 Pulse Ox Oxygen Delivery Method Positive well nourished and well developed General Appearance ED: well developed and NAD HEENT Reports moist mucous membranes normocephalic and atraumatic Eyes PERRL and EOMs intact bilaterally Neck full ROM and supple Resp normal respiratory effort and clear to auscultation bilaterally Cardio regular rate, regular rhythm and no murmurs GI non-tender and non-distended Auscultation: normoactive bowel sounds Palpation: soft Back/Spine no CVA tenderness General Back: other FROM Extremity normal to inspection General Extremety ED: Negative for edema, pulses abnormal or tenderness General Extremity: Negative for edema or pulses abnormal Neuro oriented x3, CN's II-XII intact bilaterally and no sensory deficits noted Sensorium / Orientation: awake and alert Motor Exam: strength 5/5 throughout Skin no rashes or lesions noted and no wounds MDM MDM MDM Narrative Medical decision making narrative: Patient's blood pressure dropped to the 160- 170s without treatment, still given hydralazine just 10 mg instead of 20. Now 151/73, currently asymptomatic. Kidney function and CT head are both unremarkable/normal, at this time I think the patient can follow-up safely as an outpatient and in the meantime I will increase her lisinopril to 20 mg daily. Lab Data Attestation: I reviewed the patient's lab results. Labs: Laboratory Results - last 24 hr 09/08/21 10:35 Sodium 131 L Potassium 3.5 Chloride 97 L Carbon Dioxide 26.0 Anion Gap 8 BUN 9 Creatinine 0.75 Estim Creat Clear Calc 68.19 Est GFR (MDRD) Af Amer 100 Est GFR (MDRD) Non-Af 83 BUN/Creatinine Ratio 12.0 Glucose 113 H Calcium 9.4 Radiography Diagnostic Testing: Clinical Impression(s) from Imaging Studies Brain CT 09/08/21 10:16 IMPRESSION: Chronic involutional changes of the brain. Electronically Signed: Josue Farmer MD at 11:02 EST , Service support , Discharge Plan Triage Chief Complaint: Hypertension ED Provider: Hugh Bran Dx/Rx/DC Orders Clinical Impression: Accelerated hypertension Instructions: Hypertension Dc Prescriptions: Continued ginkgo biloba 40 MG capsule 120 mg PO DAILY RF: 0 epinephrine 0.3 MG syringe 0.3 mg IM X1 RF: 0 albuterol sulfate [Ventolin HFA] 1 INHALER inhaler 2 puff inhalation Q4H PRN PRN (Reason: Bronchospasm) RF: 0 atenolol 50 MG tablet 50 mg PO DAILY RF: 0 levothyroxine 112 MCG tablet 112 mcg PO DAILY RF: 0 multivitamin with iron 1 EACH tablet 1 ea PO DAILY RF: 0 Valacyclovir Hcl [Valtrex] 1,000 MG tablet 2,000 mg PO BID PRN PRN (Reason: Pain) RF: 0 Changed lisinopril 10 MG tablet 20 mg PO DAILY Qty: 30 RF: 0 Primary Care Provider: Adeola Azevedo Referrals: Adeola Azevedo MD [Primary Care Provider] - As soon as possible (In the meantime double your lisinopril to 20 mg once daily. If you need to take a second 10 mg pill today, you may do so at any time, then resume 20 mg once daily tomorrow morning.) Disposition Disposition: Home, Self Care
[2021-09-08] MEDS: hydrALAZINE 20 MG/ML Vial IV (10:43)
[2021-09-08 10:48] VITALS: BP 163/92
--- NOTE | 2021-09-08 10:50 | ED.RN ---
Reviewed last 3 BPs with . He decreased apresoline order to 10mg.
[2021-09-08 11:15] VITALS: BP 151/73; PULSE 84; RESP 16
[2021-09-08 11:19] LABS: Anion Gap 8 (5-15); BUN 9 mg/dL (7-18); Calcium,Total 9.4 mg/dL (8.5-10.1); Chloride 97 mmol/L (98-107); Creatinine, Serum 0.75 mg/dL (0.55-1.02); EST Glomerular Filtration Rate 83 mL/min (>60); Est Glom Filt Rate - Afr Amer 100 mL/min (>60); Estimated Creatinine Clearance 68.19 ml/min; Glucose 113 mg/dL (74-106); Potassium 3.5 mmol/L (3.5-5.1); Sodium Level 131 mmol/L (136-145)
[2021-09-08 13:08] VITALS: BP 134/74; PULSE 64; RESP 15; O2SAT 17
--- NOTE | 2021-09-08 13:09 | ED.RN ---
pt's lisinopril increased. home medications list that was entered was incorrect about medication. pt was prescribed lisinopril-hctz combination. dr stated patient could double the dose of combination medication. pt then expressed concerns about cramping related to the increase in her dieretic. at this time additional prescription written for plain lisinopril 10 mg tables and prescription was e-scribed to pharmacy of patients choice. described issues prolong [place] [id number]
== END 2021-09-08 13:14 | disposition home or self-care (01) ==
PROVIDERS: Emergency Provider Emergency Medicine; PCP Internal Medicine; Visit Provider Emergency Medicine
DX: I10 Essential (primary) hypertension (principal); G40.909 Epilepsy, unspecified, not intractable, without status epilepticus; H53.8 Other visual disturbances; E03.9 Hypothyroidism, unspecified; Z79.899 Other long term (current) drug therapy; Z87.891 Personal history of nicotine dependence
CPT/HCPCS: 70450; 80048; 96374; 99284; A4216